=== PATIENT | female | born 1940 | race Caucasian/White ===

== ENCOUNTER 2019-09-14 04:55 | Inpatient (IN) ==
--- NOTE | 2019-05-26 07:35 | PAT Medication Instructions ---
Medication Instructions Date of Service May 26, 2019 Home Medications Lactobacillus acidophilus [Probiotic] 1 cell PO DAILY anastrozole 1 mg PO 1300 apixaban [Eliquis] 5 mg PO BID calcium carbonate-vitamin D3 [Os-Luis 500 + D3] 1 tab PO BID cholecalciferol (vitamin D3) [Vitamin D3] 5,000 unit PO UD diltiazem HCl 240 mg PO QAM levothyroxine 100 mcg PO QAM magnesium hydroxide [Milk of Magnesia] 400 mg PO DAILY PRN magnesium oxide 400 mg PO DAILY melatonin 5 mg PO HS Centrum Silver Women] 1 tab PO DAILY ASK your prescriber and surgeon anastrozole 1 mg PO 1300 apixaban [Eliquis] 5 mg PO BID (in order for spinal anesthesia, Apixaban/Eliquis needs to be stopped 72 hours/3 days before surgery. Please check if okay with doctor that prescribes this to you) DO NOT take the morning of surgery Lactobacillus acidophilus [Probiotic] 1 cell PO DAILY calcium carbonate-vitamin D3 [Os-Luis 500 + D3] 1 tab PO BID cholecalciferol (vitamin D3) [Vitamin D3] 5,000 unit PO UD magnesium hydroxide [Milk of Magnesia] 400 mg PO DAILY PRN magnesium oxide 400 mg PO DAILY Centrum Silver Women] 1 tab PO DAILY Take morning of surgery With a small sip of water, OTHERWISE NOTHING TO EAT OR DRINK AFTER MIDNIGHT: diltiazem HCl 240 mg PO QAM levothyroxine 100 mcg PO QAM Take evening before surgery calcium carbonate-vitamin D3 [Os-Luis 500 + D3] 1 tab PO BID magnesium hydroxide [Milk of Magnesia] 400 mg PO DAILY PRN (if needed) melatonin 5 mg PO HS Other Notes If you have any questions please call us at [phone] or [phone] or [phone] or [phone]
--- NOTE | 2019-08-16 11:57 | Anesthesiology Consultation ---
Date of Service August 16, 2019 Assessment & Plan (1) Encounter for pre-operative examination: COVID Status: As of 08/15 assessment, patient denies travel to endemic area, known exposure/sick contacts, or symptoms of COVID19. Patient made aware to social distance, wear a mask in public and avoid travel for 14 days prior to surgery. Preoperative COVID19 testing to be completed prior to surgery. Chart Review Chart Review: Acceptable Risk for Surgery (pending surgeon ordered PCP and cardio clearances) and Patient seen in Pre Admission Testing Teaching & Discussion Instructed NPO after midnight before surgery, except medications with 15 cc of water. Medication instructions provided according to the PAT guidelines. History Surgery Operation Date: 09/14/19 07:00 Proposed Procedures p Right Total Knee Arthroplasty - Chivo Vigil MD Height/Weight Height: 5 ft 5 in Weight: 74.5 kg Allergies Allergy/AdvReac Type Severity Reaction Status Date / Time capsaicin Allergy Intermediate Dizziness Verified 08/15/19 10:19 diclofenac Allergy Intermediate Dizziness Verified 08/15/19 10:19 Penicillins Allergy Intermediate RASH ALL Verified 08/15/19 10:19 OVER, "VEINS TURNED BLACK" Sulfa (Sulfonamide Allergy Intermediate FACIAL Verified 08/15/19 10:19 Antibiotics) SWELLING, RASH hydrochlorothiazide AdvReac Intermediate SEVERE Verified 08/15/19 10:19 DEHYDRATION, PT WAS HOSPITALIZED Diclopak AdvReac Unknown didn't Verified 04/27/15 12:24 work, got goofy Medications Home Medications Medication Instructions Recorded Confirmed Last Taken Lactobacillus acidophilus 1 cell PO DAILY 05/20/19 08/15/19 Unknown [Probiotic] anastrozole 1 mg PO 1300 05/20/19 08/15/19 Unknown apixaban [Eliquis] 5 mg PO BID 05/20/19 08/15/19 Unknown calcium carbonate-vitamin D3 1 tab PO BID 05/20/19 08/15/19 Unknown [Os-Luis 500 + D3] cholecalciferol (vitamin D3) 5,000 unit PO UD 05/20/19 08/15/19 Unknown [Vitamin D3] diltiazem HCl 240 mg PO QAM 05/20/19 08/15/19 Unknown levothyroxine 100 mcg PO QAM 05/20/19 08/15/19 Unknown magnesium hydroxide [Milk of 400 mg PO DAILY PRN 05/20/19 08/15/19 Unknown Magnesia] magnesium oxide 400 mg PO DAILY 05/20/19 08/15/19 Unknown melatonin 5 mg PO HS 05/20/19 08/15/19 Unknown [id number] 1 tab PO DAILY 05/20/19 08/15/19 Unknown [Centrum Silver Women] Past Medical History Medical History Atrial fibrillation ON ELIQUIS (DR. TROY) Heart murmur "SLIGHT" Hx of diverticulitis of colon Hx of migraines HX: breast cancer RT Hyperlipidemia Hypertension Hypothyroidism Osteoarthritis Spinal stenosis Exercise / Class Metabolic Activity II 4-5 Yardwork/Stairs/Walk up hill (Denies CP or SOB with 1 FOS) Past Family History Family History Father Family hx of colon cancer Brother Family hx of colon cancer Past Surgical History Surgical History Fusion of spine LUMBAR History of ankle surgery RT/LEFT History of appendectomy History of arthroscopy RT/LEFT KNEE History of biopsy ABDOMINAL BIOPSY History of breast biopsy History of cataract surgery RT/LEFT History of cholecystectomy History of colon resection History of colonoscopy History of dilatation and curettage X 2 History of hysterectomy History of shoulder surgery RT History of total knee replacement LEFT History of vascular access device POWER PORT IN PLACE (LEFT CHEST) Hx of lumpectomy RT Past Anesthesia History No Hx of Anesthesia Complications and No Family Hx of Anesthesia Complications History of PONV No Hx of Motion Sickness and History of PONV Social History Smoking Status: Never smoker Do You Dip or Chew Tobacco: No Hx Alcohol Use: Yes Alcohol type: wine alcohol intake frequency: a few times a month Hx Substance Use: No Review of Systems Pt denies any recent chest pain, shortness of breath, palpitations, cough, fever or URI. Physical Exam Vital Signs BP: 119/73 P: 65bpm SPO2: 95% RA T: 98.2 F R: 12 ENMT Mouth: no dentures, no dental restorations, no chipped teeth and no loose teeth Thyromental Distance: > or= 3.5 Finger Breadths (3.5) Mallampati Class: I Neck normal visual inspection; neck extension not limited Respiratory normal respiratory effort Auscultation: lungs clear to auscultation bilaterally Cardiovascular Rate/Rhythm: regular rate and regular rhythm Heart Sounds: + murmur (II/ LEV) Extremities: no edema Testing Laboratory Results 08/16/19 13:13 08/16/19 13:13 PT 10.8 Seconds (9.0-12.0) 08/16/19 13:13 INR 1.0 (0.9-1.1) 08/16/19 13:13 APTT 30.6 Seconds (21.0-31.0) 08/16/19 13:13 Hemoglobin A1c 5.9 % (4.5-5.6) H 08/16/19 13:13 Urine Color Yellow 08/16/19 13:13 Urine Appearance Clear (Clear) 08/16/19 13:13 Urine pH 6.5 (4.5-7.5) 08/16/19 13:13 Ur Specific [place] 1.019 (1.000-1.030) 08/16/19 13:13 Urine Protein Negative (Negative) 08/16/19 13:13 Urine Glucose (UA) Negative (Negative) 08/16/19 13:13 Urine Ketones Negative (Negative) 08/16/19 13:13 Urine Nitrite Negative (Negative) 08/16/19 13:13 Ur Leukocyte Esterase Trace (Negative) H 08/16/19 13:13 Urine WBC (Auto) 1-5 /hpf (0-5) 08/16/19 13:13 Urine RBC (Auto) 0-4 /hpf (0-4) 08/16/19 13:13 U Hyaline Cast (Auto) 0 /lpf (0-5) 08/16/19 13:13 U Epithel Cells (Auto) 5-10 /lpf (0-5) H 08/16/19 13:13 Urine Bacteria (Auto) Negative (Negative) 08/16/19 13:13 Blood Type O Negative 08/16/19 13:13 Antibody Screen NEGATIVE 08/16/19 13:13 Electrocardiogram Date: 07/19/19 Findings: + NSR @ (71bpm) PRWP, no change from previous .9 Chest X-Ray Date: 08/16/19 Findings: + NAD
--- NOTE | 2019-08-16 13:10 | XRay Report ---
XR chest 2V PA/lateral CLINICAL HISTORY: Preoperative chest COMPARISON STUDY: 03/21/2015 FINDINGS: The cardiac and mediastinal contours remain stable. Surgical clips project over the right b reast shadow. There is a left-sided A-Port catheter present. There is no failure. There is no focal p ulmonary consolidation. There are no pleural effusions.[ IMPRESSION: No active disease in the chest. ACT 112: Negative or not required by law. Electronically signed by: Byron Romero M.D. 08/16/2019 1:08 PM
[2019-08-16 13:38] LABS: Basophils # (auto) 0.04 K/uL (0-0.2); Basophils % (auto) 0.6 %; Hemoglobin 13.5 g/dL (12.0-16.0); Immature Granulocytes # (auto) 0.02 K/uL (0.00-0.02); Immature Granulocytes % (auto) 0.3 %; Lymphocytes % (auto) 28.1 %; Mean Corpuscular Hemoglobin 30.1 pg (25-34); Mean Corpuscular Hgb Conc 33.8 g/dL (32-36); Mean Corpuscular Volume 89.1 fL (80-100); Mean Platelet Volume 10.1 fL (7.4-10.4); Monocytes # (auto) 0.62 K/uL (0.11-0.59); Monocytes % (auto) 9.2 %; Neutrophils # (auto) 3.97 K/uL (1.4-6.5); Neutrophils % (auto) 58.8 %; Platelet Count 220 K/uL (130-400); RDW Coefficient of Variation 13.4 % (11.5-14.5); RDW Standard Deviation 43.8 fL (36.4-46.3); Red Blood Count 4.49 M/uL (4.2-5.4); White Blood Count 6.75 K/uL (4.8-10.8)
[2019-08-16 13:48] LABS: Appearance Urine Clear (Clear); Bacteria Urine Automated Negative (Negative); Bilirubin Urine Negative (Negative); Blood Urine Negative (Negative); Cast Urine Automated 0 /lpf (0-5); Color Urine Yellow; Glucose Urine UA Negative (Negative); Ketones Urine Negative (Negative); Leukocyte Esterase Urine Trace (Negative); Nitrite Urine Negative (Negative); Protein Urine Negative (Negative); RBC Urine Automated 0-4 /hpf (0-4); Specific Gravity Urine 1.019 (1.000-1.030); Urobilinogen Urine Negative (Negative); pH Urine 6.5 (4.5-7.5)
[2019-08-16 14:02] LABS: Partial Thromboplastin Ratio 1.1; Partial Thromboplastin Time 30.6 Seconds (21.0-31.0); Prothrombin Time 10.8 Seconds (9.0-12.0)
[2019-08-16 14:12] LABS: Estimated Average Glucose 123 mg/dl; Hemoglobin A1C 5.9 % (4.5-5.6)
[2019-08-16 14:20] LABS: Albumin Level 3.8 gm/dl (3.4-5.0); Calcium 8.9 mg/dl (8.5-10.1); Creatinine Clr Calc Pharmacy 49.9 ml/min; Est GFR (African American) 65.8; Est GFR (Non-African American) 56.7; Potassium 3.9 mmol/L (3.5-5.1)
--- NOTE | 2019-09-13 17:35 | History and Physical Report ---
DATE OF ADMISSION: 09/14/2019 CHIEF COMPLAINT: Chronic right knee pain. HISTORY OF PRESENT ILLNESS: This is a 78-year-old female patient of Dr. Vigil'rebeca complaining of chronic right knee pain, longstanding, now progressively getting worse. The patient has failed conservative treatment including intraarticular injections, viscosupplementation, a home exercise wellness program and the use of a sleeve. The patient has increased pain with weightbearing activities and her pain does interfere with her activities of daily living. The patient has been diagnosed with end-stage osteoarthritis per clinical and radiographic exams and wishes to proceed with a right total knee arthroplasty. PAST MEDICAL HISTORY: Hypertension, hypercholesterolemia, atrial fibrillation, hypothyroidism, osteoarthritis, sciatica, breast cancer. SOCIAL HISTORY: Nonsmoker, occasional drinker. FAMILY HISTORY: Noncontributory. REVIEW OF SYSTEMS: Chronic right knee pain, otherwise denies any shortness of breath, chest pain, nausea, vomiting or any other joint complaints. MEDICATIONS: 1. Synthroid 100 mcg daily. 2. Centrum Silver 1 daily. 3. Milk of magnesia 30 mL with 8 ounces of liquid daily. 4. Magnesium oxide 40 mg daily. 5. Melatonin 5 mg daily. 6. Tiazac 240 mg daily. 7. Arimidex 1 mg daily. 8. Eliquis 5 mg twice daily. 9. Vitamin D3 125 mcg daily. 10. Probiotic 10 mg capsule once daily. 11. Elidel 1% topical cream apply to affected area daily as needed. 12. Os-Luis 500 plus vitamin D3 500 mg twice daily. ALLERGIES: DICLOFENAC SODIUM AND HYDROCHLOROTHIAZIDE, PENICILLIN AND SULFA, PENICILLIN CAUSES ANAPHYLAXIS. PAST SURGICAL HISTORY: Appendectomy, D and C, hysterectomy, cholecystectomy, left knee arthroscopy, right knee arthroscopy, back surgery, right ankle and Achilles surgery, left total knee replacement, left ankle surgery, right shoulder surgery, abdominal biopsy, breast biopsy, breast lumpectomy, bowel resection. PHYSICAL EXAMINATION: GENERAL: Well-developed, well-nourished 78-year-old female in no acute distress. She is alert and oriented x3 and pleasant. HEENT: Normocephalic, atraumatic. Extraocular motions are intact. Pupils are equal and reactive to light. HEART: Regular rate and rhythm, no murmurs. LUNGS: Clear. ABDOMEN: Soft, nontender, bowel sounds present. EXTREMITIES: Right knee varus deformity. Range of motion 0-95. Medial joint line tenderness, 5/5 strength. NEUROLOGICALLY AND NEUROVASCULARLY: Intact in her right lower extremity. DIAGNOSES: Right knee end-stage osteoarthritis, hypertension, hypercholesterolemia, atrial fibrillation, hypothyroidism, osteoarthritis, sciatica, breast cancer. PLAN: The patient was advised of her diagnosis. Indications, risks, benefits, postop course have all been reviewed. The patient wished to proceed with a right total knee arthroplasty. Necessary consent forms, preoperative testing and clearances will be obtained.
[~2019-09-14 04:55] MED LIST: LR 500ML BOLUS, THEN 15ML/HR IV SCH
[2019-09-14] MEDS ORDERED: LR 500ML BOLUS, THEN 15ML/HR IV SCH (06:00)
[2019-09-14] MEDS ORDERED: VANCOMYCIN HCL 1,000 MG/270 ML BAG IV SCH (06:00)
[2019-09-14] MEDS ORDERED: METOCLOPRAMIDE HCL 10 MG TABLET PO SCH (06:00)
[2019-09-14] MEDS ORDERED: dexAMETHasone 4 MG TAB PO SCH (06:00)
[2019-09-14] MEDS ORDERED: ROPIVACAINE 0.5% HCL/PF 150 MG, BUPIVACAINE 0.5% MPF 30 ML, EPINEPHrine 30MG/30ML (OR U... INFIL SCH (06:00)
[2019-09-14] MEDS ORDERED: GABAPENTIN 300 MG CAP PO SCH (06:00)
[2019-09-14] MEDS ORDERED: FAMOTIDINE 20 MG TAB PO SCH (06:00)
[2019-09-14] MEDS ORDERED: ACETAMINOPHEN 500 MG TAB PO SCH (06:00)
[2019-09-14] MEDS ORDERED: BUPIVACAINE/EPINEPHRINE 0.25% 1:200,000 30 ML VIAL ONE (06:28)
[2019-09-14] MEDS ORDERED: BUPIVACAINE 0.5 % 5 MG/1 ML PF 10ML VIAL ONE (06:28)
[2019-09-14] MEDS ORDERED: MIDAZOLAM HCL 1 MG/ML 2ML VIAL ONE (06:36)
[2019-09-14] MEDS ORDERED: BACITRACIN INJ 50,000 UNIT VIAL ONE (06:44)
[2019-09-14] MEDS ORDERED: ORTHO JOINT ANESTHETIC ONE (06:44)
--- NOTE | 2019-09-14 06:45 | History & Physical Bridge Note ---
Date of Service September 14, 2019 History & Physical Bridge Note I have examined the patient, reviewed the History & Physical and in the interval since the performance of the History & Physical I have noted the following changes of clinical significance: no changes noted
[2019-09-14] MEDS ORDERED: HYDROmorphone INJ 2 MG/ML SYR/VIAL IV PRN (07:11)
[2019-09-14] MEDS ORDERED: fentaNYL citrate 100 MCG/2 ML VIAL IV PRN (07:11)
[2019-09-14] MEDS ORDERED: ONDANSETRON INJ 2 MG/ML 2 ML VIAL IV PRN ×2 (07:11→09:53)
[2019-09-14] MEDS ORDERED: ePHEDrine sulfate 50 MG/ML AMP IV PRN (07:11)
[2019-09-14] MEDS ORDERED: ATROPINE SULFATE 0.1 MG/ML 10ML SYR IV PRN (07:11)
--- NOTE | 2019-09-14 08:43 | Post Operative Brief Note ---
Immediate Post Op Note v1 Date of Surgery September 14, 2019 Pre & Post Diagnosis Operation Date: 09/14/19 07:00 Pre-Op Diagnosis: Right Knee Osteoarthritis Post-Op Diagnosis: Right Knee Osteoarthritis I identified the patient and participated in the time-out.: Yes Procedure Operation Date: 09/14/19 07:00 Actual Procedures p Right Total Knee Arthroplasty(Right) - Chivo Vigil MD Surgeon Chivo Vigil MD Electrical Tests Supervisor CINTHIA Link Estimated Blood Loss 2 Findings Consistent with Post-Op Diagnosis Specimens Bone cuts Drains Hemovac Drain (10french, dual lumen) Anesthesia Type MAC Spinal Regional Complications none Disposition Accompanied Patient To Recovery: No Disposition: Recovery Room Overlapping Procedure I was immediately available: during the entire case.
--- NOTE | 2019-09-14 08:57 | Operative Report ---
Post Operative Report Pre & Post Diagnosis Operation Date: 09/14/19 07:00 Pre-Op Diagnosis: Right Knee Osteoarthritis Post-Op Diagnosis: Right Knee Osteoarthritis I identified the patient and participated in the time-out.: Yes Procedure Operation Date: 09/14/19 07:00 Actual Procedures p Right Total Knee Arthroplasty(Right) - Chivo Vigil MD Surgeon Chivo Vigil MD Director Of Acquisitions CINTHIA Link Estimated Blood Loss 2 Findings Consistent with Post-Op Diagnosis Specimens Bone cuts Drains 2 Hemovac Anesthesia Type MAC Spinal Regional Complications none Disposition Accompanied Patient To Recovery: No Disposition: Recovery Room Indications 78-year-old female chronic right knee pain due to osteoarthritis with progressive condition [id number] medial compartment patellofemoral joint with varus knee. Successful left knee replacement in the past. Description of Procedure The patient was taken to the operating room and anesthetized under spinal MAC regional. Patient was placed supine on the the operating table. A pneumatic tourniquet was placed about the right upper thigh. The knee exam demonstrated 10 through 135 degrees range of motion no instability varus knee. The involved leg was elevated exsanguinated with Esmarch bandage and the pneumatic tourniquet was raised to 275 millimeters mercury. A longitudinal incision was made across the anterior knee. Skin flaps were elevated. An incision was made into the medial retinaculum and extended up into the mid third of the quadriceps tendon and extended down to the tibial tubercle. Intra-articular findings demonstrated medial compartment and patellofemoral osteoarthritis grade 4 patellofemoral disease grade 4 medial compartment disease varus knee, loose bodies. The knee was exposed by excising cruciate ligaments and menisci. The infrapatellar fat pad was resected. The fat pad over the anterior femur at the upper aspect of th e articular surface was resected for placement of the component in that area. A subperiosteal peel lateral release was performed around the patella. Loose bodies removed. Medial and posterior medial release was performed to balance the ligaments. The [employer] journey 2.0 posterior stabilized total knee arthroplasty system was utilized for the procedure. The custom femoral cutting guide was pinned in position. The distal femoral cut was made. The size 4, 5 in 1 cutting block was placed. The anterior posterior and chamfer cuts were made. The knee was extended and a free hand cut technique was performed to the patella. The patella with was measured and the width was reproduced using a 35 symmetrical patella component. 3 drill holes are made for the patella component pegs. The tibia was then subluxed. The custom tibial cutting block was pinned in position and the proximal tibial cut was made with the oscillating saw. The size 4 tibial trial was externally rotated in line with the tibial tubercle and pinned in position. The punch for the stem was used. The femoral trial was inserted and centered the notch cutting devices were used and the collet was placed. Tibial trials were used for the insert. The size 10 trial gave balanced ligaments through full range of motion. Patella tracking was assessed with range of motion. The patella tracked centrally. The trials were removed. The Orthomix anesthetic cocktail was injected per protocol. The cut bone surfaces and soft tissue were copiously irrigated with antibiotic solution with bacitracin. The final components were cemented with Simplex cement. The final components were [employer] journey 2.0 right 4 posterior stabilized femoral component, tibia size 4 primary baseplate, 10 posterior stabilized polyethylene tibial insert, 35 symmetrical polyethylene patella. While the cement cured the Betadine soak was used per protocol. When the cement cured the knee was copiously irrigated with pulsatile lavage antibiotic solution with bacitracin. 2 drains were brought out laterally connected to Hemovac. The quadriceps tendon and medial retinaculum were closed with interrupted [id number] #1 Vicryl sutures. The knee was taken through full range of motion and repair was secure. The subcutaneous tissues were closed with 2-0 Vicryl sutures. The skin was closed with christine. A sterile dressing was applied. The tourniquet was let down and the patient had good capillary refill to the extremity. The patient tolerated the procedure well. My physician malt specifications control assistant CINTHIA Link assisted in the procedure including prepping draping leg positioning soft tissue retraction instrument management and assisted in the closure ,dressings application and will participate in postoperative care the patient. I attest to the content of the Intraoperative Record and any orders documented therein. Any exceptions are noted below.
--- NOTE | 2019-09-14 09:19 | XRay Report ---
TWO VIEWS RIGHT KNEE CLINICAL HISTORY: Postoperative examination. FINDINGS: AP and crosstable lateral portable views of the right knee are obtained. A right knee arthr oplasty is in near anatomic alignment. There has been undersurface remodeling of the patella. No acut e fracture is seen. There are expected postoperative changes around the knee including skin clips, a surgical drain, soft tissue edema, and subcutaneous gas. IMPRESSION: Expected postoperative changes status post right knee arthroplasty. No acute fracture is seen. ACT 112: Negative or not required by law. Electronically signed by: Chance Zhang M.D. 09/14/2019 9:18 AM
[2019-09-14] MEDS ORDERED: NON-FORMULARY MEDICATION (Multivit-Min-Iron-Fa-Lutein [Centrum Silver Women] 1 TAB) PO SCH (09:53)
[2019-09-14] MEDS ORDERED: NON-FORMULARY MEDICATION (Lactobacillus Acidophilus [Probiotic] 1 cell) PO SCH (09:53)
[2019-09-14] MEDS ORDERED: VANCOMYCIN CONSULT ACTIVE PRN (09:53)
[2019-09-14] MEDS ORDERED: MAGNESIUM HYDROXIDE SUSP 30 ML UDC PO PRN ×2 (09:53)
[2019-09-14] MEDS ORDERED: bisacodyL 10 MG SUPP PR PRN (09:53)
[2019-09-14] MEDS ORDERED: HYDROmorphone INJ 0.5 MG/0.5 ML SYR IV PRN (09:53)
[2019-09-14] MEDS ORDERED: NALOXONE HCL 0.4 MG/1 ML VIAL/CARP IV PRN (09:53)
--- NOTE | 2019-09-14 10:09 | Anesthesiology Progress Note ---
Date of Service September 14, 2019 Anesthesia Post Procedure Vital Signs Vital Signs: Temp Pulse Pulse Resp BP BP Pulse Ox 09/14/19 09:40 36.4 C L 65 16 111/56 L 96 09/14/19 09:30 55 L 15 110/48 L 92 09/14/19 09:15 36.4 C L 59 L 16 104/49 L 92 09/14/19 09:05 67 18 106/61 95 09/14/19 08:55 59 L 14 107/45 L 100 09/14/19 08:48 36.4 C L 62 16 94/48 L 100 09/14/19 05:28 36.8 C 69 18 146/74 H 99 Transfer of Care Handoff Completed per policy Notes Mental Status: alert / awake / arousable and participated in evaluation Patient Amnestic to Procedure: Yes Nausea / Vomiting: adequately controlled Pain: adequately controlled Airway Patency, RR, SpO2: stable & adequate BP & HR: stable & adequate Hydration State: stable & adequate Anesthetic Complications: no major complications apparent and Pt Satisfied with anesthetic care
--- NOTE | 2019-09-14 10:31 | Hospitalist Consultation ---
Date of Consultation September 14, 2019 Assessment & Plan (1) Status post total knee replacement, right: 09/14/2019 Dr Vigil Pain/PT management as per orthopedics DVT prophylaxis with Eliquis (primarily on this for paroxysmal A. fib) - restart as per orthopedics (2) Hypertension: Low pressure currently acceptable, continue her usual dose of diltiazem as well as systolic blood pressure > 110. (3) Hypothyroidism: No TSH in EHR. No need to repeat given no concern current patient symptoms. Continue levothyroxine 100 mcg PO daily (4) Atrial fibrillation: Paroxysmal atrial fibrillation -previous hospitalizations for rapid ventricular rate but none recent Currently in normal sinus rhythm on EKG and regular rhythm on auscultation Anticoagulation with Eliquis - restart as per orthopedic recommendation (will start tomorrow as per order) (5) History of breast cancer: Continue anastrazole 1mg PO daily History of Present Illness Reason for Consultation: Routine post op medical management Attending Physician: Chivo Vigil MD History of Present Illness Sarahy Mina is a 78 year old female here for elective right total knee arthroplasty performed earlier today (09/14/2019) by Dr Vigil for osteoarthritis. Medicine consulted for routine post op medical management. The patient is alert and orientated postoperatively. No current concerns or questions. History of hypertension, hypercholesterolemia, hypothyroidism, breast cancer, paroxysmal atrial fibrillation and sciatica. Pre-op lab work reviewed and relatively unremarkable although HbA1C 5.7 suggests patient at risk of diabetes however fating glucose <100. No pre-op EKG seen in EHR or on [place]. Pre-op CXR with no acudive disease in chest. Left sided a-Port present. Allergies Allergy/AdvReac Type Severity Reaction Status Date / Time capsaicin Allergy Intermediate Dizziness Verified 09/14/19 05:26 Penicillins Allergy Intermediate RASH ALL Verified 09/14/19 05:26 OVER, "VEINS TURNED BLACK" Sulfa (Sulfonamide Allergy Intermediate FACIAL Verified 09/14/19 05:26 Antibiotics) SWELLING, RASH diclofenac AdvReac Intermediate Dizziness Verified 09/14/19 05:26 hydrochlorothiazide AdvReac Intermediate SEVERE Verified 09/14/19 05:26 DEHYDRATION, PT WAS HOSPITALIZED Diclopak AdvReac Unknown didn't Verified 04/27/15 12:24 work, got goofy Home Medications Home Medications Medication Instructions Recorded Confirmed Type Lactobacillus acidophilus 1 cell PO DAILY 05/20/19 09/14/19 History [Probiotic] anastrozole 1 mg PO 1300 05/20/19 09/14/19 History apixaban [Eliquis] 5 mg PO BID 05/20/19 09/14/19 History calcium carbonate-vitamin D3 1 tab PO BID 05/20/19 09/14/19 History [Os-Luis 500 + D3] cholecalciferol (vitamin D3) 5,000 unit PO UD 05/20/19 09/14/19 History [Vitamin D3] diltiazem HCl 240 mg PO QAM 05/20/19 09/14/19 History levothyroxine 100 mcg PO QAM 05/20/19 09/14/19 History magnesium hydroxide [Milk of 400 mg PO DAILY PRN 05/20/19 09/14/19 History Magnesia] magnesium oxide 400 mg PO DAILY 05/20/19 09/14/19 History melatonin 5 mg PO HS 05/20/19 09/14/19 History mnyxythe-ajo-mcwn-FA-lutein 1 tab PO DAILY 05/20/19 09/14/19 History [Centrum Silver Women] Restasis See Rx Instructions .ROUTE .COMPLEX 09/14/19 09/14/19 History Patient History Medical History Atrial fibrillation ON ELIQUIS (DR. TROY) Heart murmur "SLIGHT" Hx of diverticulitis of colon Hx of migraines HX: breast cancer RT Hyperlipidemia Hypertension Hypothyroidism Osteoarthritis Spinal stenosis Surgical History Fusion of spine LUMBAR History of ankle surgery RT/LEFT History of appendectomy History of arthroscopy RT/LEFT KNEE History of biopsy ABDOMINAL BIOPSY History of breast biopsy History of cataract surgery RT/LEFT History of cholecystectomy History of colon resection History of colonoscopy History of dilatation and curettage X 2 History of hysterectomy History of shoulder surgery RT History of total knee replacement LEFT History of vascular access device POWER PORT IN PLACE (LEFT CHEST) Hx of lumpectomy RT Family History Father Family hx of colon cancer Brother Family hx of colon cancer Social History Smoking Status: Never smoker Second Hand Exposure: Yes ( A CHILD); Do You Dip or Chew Tobacco: No; Tobacco Cessation Education Requested by Patient: No Hx Alcohol Use: Yes Alcohol type: wine Hx Substance Use: No Preferred Language: [place] Leonean Coating Operator Required: No Beliefs That Will Affect Care: None Current Living Situation: Spouse Feels Safe at Home: Yes Safety Concerns: Feels Safe At This Time Review of Systems Review of Systems: All systems reviewed & are unremarkable except as noted in HPI & below Physical Exam Constitutional: well developed and well nourished; no acute distress Eyes: + anicteric sclerae; normal pupil size ENMT: external ear and nose normal, oropharynx normal Neck: trachea midline, no thyromegaly Respiratory: normal respiratory effort, lungs clear to auscultation Cardiovascular: RRR, no murmur, no edema Gastrointestinal (Abdomen): normal bowel sounds, soft, nontender, no hepatosplenomegaly Neurologic: awake; not confused Psychiatric: A+Ox3, euthymic affect Results & Data Results & Data ([facility]) Vital Signs (Past 12 Hours) Vital Signs Temp Pulse Pulse Resp BP BP Pulse Ox 09/14/19 10:14 36.4 C L 61 18 110/66 95 09/14/19 09:40 36.4 C L 65 16 111/56 L 96 09/14/19 09:30 55 L 15 110/48 L 92 09/14/19 09:15 36.4 C L 59 L 16 104/49 L 92 09/14/19 09:05 67 18 106/61 95 09/14/19 08:55 59 L 14 107/45 L 100 09/14/19 08:48 36.4 C L 62 16 94/48 L 100 09/14/19 05:28 36.8 C 69 18 146/74 H 99 ECG Rhythm: normal sinus Findings: + other (Poor R wave progression) and + 1st degree AV block Comparison ECG Date: from (September 26, 2010) Change: the following changes noted (Age-indeterminate possible anterior lateral infarct and poor R wave progression are new from 2008) PG Care Time/CCT Total # of Minutes Spent Total Time Spent with Patient: Total time spent is greater than 50% in coordination of care (as documented) at patient's floor/unit and/or counseling patient: Coding Level of Care Code 19811 Inpt Consult Level 3 Diagnoses Status post total knee replacement, right Z96.651 Hypertension I10 Hypothyroidism E03.9 Atrial fibrillation I48.0 Atrial fibrillation type: paroxysmal History of breast cancer Z85.3 (1) Atrial fibrillation Atrial fibrillation type: paroxysmal Qualified Code(s): I48.0 - Paroxysmal atrial fibrillation
[2019-09-14] MEDS: DOCUSATE SODIUM 100 MG CAP PO SCH ×2 (10:50→21:28)
[2019-09-14] MEDS: dilTIAZem HCL 240 MG CAPCR PO SCH ×2 (10:51→11:31)
[2019-09-14] MEDS: LEVOTHYROXINE SODIUM 100 MCG TABLET PO SCH ×2 (10:51→11:30)
[2019-09-14] MEDS: MULTIVITAMIN TAB PO SCH (10:51)
[2019-09-14] MEDS: RESTASIS~ORDER AWAITING ACTION SCH ×2 (10:51→15:49)
--- NOTE | 2019-09-14 12:47 | Electrocardiogram Report ---
Test Reason : Blood Pressure : / mmHG Vent. Rate : 063 BPM Atrial Rate : 063 BPM P-R Int : 248 ms QRS Dur : 098 ms QT Int : 444 ms P-R-T Axes : 033 -31 -07 degrees QTc Int : 454 ms Sinus rhythm with 1st degree A-V block Left axis deviation Minimal voltage criteria for LVH, may be normal variant ( R in aVL ) Possible Anterolateral infarct , age undetermined Abnormal ECG When compared with ECG of 26-SEP-2010 15:41, Significant changes have occurred Confirmed by Celestine Jonas ([id number]) on 09/14/2019 12:47:36 PM Referred By: Chivo Vigil Confirmed By:Celestine Jonas
[2019-09-14] MEDS: ANASTROZOLE 1 MG TAB PO SCH (12:57)
[2019-09-14] MEDS: ACETAMINOPHEN 500 MG TAB PO SCH ×2 (13:51→21:28)
[2019-09-14] MEDS: SODIUM CHLORIDE 0.9% 1000ML 1,000 ML IV SCH (15:46)
[2019-09-14] MEDS ORDERED: VANCOMYCIN HCL 1,000 MG in SODIUM CHLORIDE 0.9% 250 ML IV SCH (18:00)
[2019-09-14] MEDS: CALCIUM 600MG + VIT D 400 IU TAB PO SCH (21:28)
[2019-09-14] MEDS: SENNA 8.6 MG TAB PO SCH (21:29)
[2019-09-14] MEDS: MELATONIN 3 MG TAB PO SCH (23:30)
[2019-09-15] MEDS: RESTASIS~ORDER AWAITING ACTION SCH ×3 (00:55→16:00)
[2019-09-15] MEDS: HEPARIN 100 UNIT/ML 5ML FLUSH FLUSH PRN (02:27)
[2019-09-15] MEDS: SODIUM CHLORIDE 0.9% 1000ML 1,000 ML IV SCH (03:14)
[2019-09-15] MEDS: OXYCODONE HCL IR 5 MG TAB (IMMEDIATE RELEASE) PO PRN ×3 (04:14→15:13)
[2019-09-15] MEDS: ACETAMINOPHEN 500 MG TAB PO SCH ×3 (06:04→21:09)
[2019-09-15] MEDS: LEVOTHYROXINE SODIUM 100 MCG TABLET PO SCH (06:04)
[2019-09-15 06:34] LABS: Hematocrit (blood only) 29.1 % (37-47); Hemoglobin 9.8 g/dL (12.0-16.0); Mean Corpuscular Hemoglobin 30.1 pg (25-34); Mean Corpuscular Hgb Conc 33.7 g/dL (32-36); Mean Corpuscular Volume 89.3 fL (80-100); Mean Platelet Volume 9.9 fL (7.4-10.4); Platelet Count 198 K/uL (130-400); RDW Coefficient of Variation 13.7 % (11.5-14.5); RDW Standard Deviation 44.8 fL (36.4-46.3); Red Blood Count 3.26 M/uL (4.2-5.4); White Blood Count 12.85 K/uL (4.8-10.8)
[2019-09-15 07:11] LABS: BUN Creatinine Ratio 26.8 (10-20); Calcium 8.4 mg/dl (8.5-10.1); Creatinine Clr Calc Pharmacy 65.8 ml/min; Est GFR (African American) 92.7; Potassium 4.1 mmol/L (3.5-5.1)
[2019-09-15] MEDS: MAGNESIUM OXIDE 400 MG TAB PO SCH (08:46)
[2019-09-15] MEDS: CALCIUM 600MG + VIT D 400 IU TAB PO SCH ×2 (08:46→20:11)
[2019-09-15] MEDS: DOCUSATE SODIUM 100 MG CAP PO SCH ×2 (08:47→20:12)
[2019-09-15] MEDS: dilTIAZem HCL 240 MG CAPCR PO SCH (08:47)
[2019-09-15] MEDS: APIXABAN 5 MG TABLET PO SCH ×2 (08:47→20:11)
[2019-09-15] MEDS: MULTIVITAMIN TAB PO SCH (08:47)
[2019-09-15] MEDS: CHOLECALCIFEROL 1,000 UNITS 25 MCG TAB PO SCH (08:48)
--- NOTE | 2019-09-15 11:13 | Orthopedic Progress Note ---
Date of Service September 15, 2019 Assessment & Plan (1) Status post total knee replacement, right: POD #1, Right TKA PT/ OT DVT proph- [facility] D/C planning- Home w OPPT As per medicine- recent EKG changes. Admission and Anticipated Discharge Date Admission Date: September 14, 2019 Subjective POD #1, Right TKA Doing well Denies SOB, CP, N/V, dizziness. Pain controlled well. Wishes OPPT on D/C Physical Exam Physical Exam: Right knee dressings c/d/i, no drainage. Toes/ ankle mobile. No calf tenderness. A&Ox3. Results & Data ([facility]) Vital Signs (Past 12 Hours) Vital Signs Temp Pulse Resp BP Pulse Ox 09/15/19 08:50 81 108/61 09/15/19 07:42 37.1 C 67 16 106/66 95 09/15/19 02:44 36.9 C 73 16 115/68 92 09/14/19 23:16 37.4 C 73 16 126/72 93
[2019-09-15] MEDS: ANASTROZOLE 1 MG TAB PO SCH (12:32)
--- NOTE | 2019-09-15 13:49 | Hospitalist Progress Note ---
Date of Service September 15, 2019 Assessment & Plan (1) Status post total knee replacement, right: 09/14/2019 Dr Vigil Pain/PT management as per orthopedics DVT prophylaxis with Eliquis (primarily on this for paroxysmal A. fib) resumed per primary (2) Hypertension: Low normal pressures - continue her usual dose of diltiazem as well as systolic blood pressure > 110. (3) Hypothyroidism: Continue levothyroxine 100 mcg PO daily (4) Atrial fibrillation: Paroxysmal atrial fibrillation -previous hospitalizations for rapid ventricular rate but none recent Currently with a regular rhythm to auscultation Anticoagulation with Eliquis - resumed per primary (5) History of breast cancer: Continue anastrazole 1mg PO daily (6) Acute blood loss anemia: Hgb dropped from 13.5 to 9.8 post op Continue to monitor Thank you for involving us in the care of this patient, medicine will sign off at this time. Admission and Anticipated Discharge Date Admission Date: September 14, 2019 Subjective Ms. Mina feels good today. She has no complaints Physical Exam Physical Exam: General: no distress Eyes: normal inspection, PERLL Respiratory: chest non tender, clear to auscultation, normal breath sounds, no respiratory distress, no accessory muscle use Cardiac: regular rate and rhythm, no rub or gallop, 2/6 RUSB systolic murmur, no edema, no jvd GI/: active bowel sounds, no abd pain or tenderness, soft, non distended Extremities: normal range of motion, normal strength, non tender Neuro/Psych: alert and oriented x 3, normal mood and affect Skin: normal color, dry Results & Data Results & Data ([facility]) Vital Signs (Past 12 Hours) Vital Signs Temp Pulse Resp BP Pulse Ox 09/15/19 11:28 36.7 C 65 16 105/62 96 09/15/19 08:50 81 108/61 09/15/19 07:42 37.1 C 67 16 106/66 95 09/15/19 02:44 36.9 C 73 16 115/68 92 PG Care Time/CCT Total # of Minutes Spent Total Time Spent with Patient: Total time spent is greater than 50% in coordination of care (as documented) at patient's floor/unit and/or counseling patient: Coding Level of Care Code 44409 Subseq Hosp Care Lvl 2 Diagnoses Status post total knee replacement, right Z96.651 Hypertension I10 Hypothyroidism E03.9 Atrial fibrillation I48.0 Atrial fibrillation type: paroxysmal History of breast cancer Z85.3 Acute blood loss anemia D62 (1) Atrial fibrillation Atrial fibrillation type: paroxysmal Qualified Code(s): I48.0 - Paroxysmal atrial fibrillation
[2019-09-15] MEDS: SENNA 8.6 MG TAB PO SCH (20:11)
[2019-09-15] MEDS: MELATONIN 3 MG TAB PO SCH (20:12)
[2019-09-16] MEDS: RESTASIS~ORDER AWAITING ACTION SCH ×4 (00:06→23:09)
[2019-09-16] MEDS: OXYCODONE HCL IR 5 MG TAB (IMMEDIATE RELEASE) PO PRN ×5 (03:16→23:09)
[2019-09-16] MEDS: ACETAMINOPHEN 500 MG TAB PO SCH ×3 (05:36→21:09)
[2019-09-16] MEDS: LEVOTHYROXINE SODIUM 100 MCG TABLET PO SCH (05:37)
[2019-09-16 06:23] LABS: Hematocrit (blood only) 25.2 % (37-47); Hemoglobin 8.5 g/dL (12.0-16.0); Mean Corpuscular Hemoglobin 30.4 pg (25-34); Mean Corpuscular Hgb Conc 33.7 g/dL (32-36); Platelet Count 168 K/uL (130-400); RDW Coefficient of Variation 13.9 % (11.5-14.5); RDW Standard Deviation 45.9 fL (36.4-46.3); White Blood Count 7.68 K/uL (4.8-10.8)
[2019-09-16 07:08] LABS: BUN Creatinine Ratio 28.1 (10-20); Calcium 8.3 mg/dl (8.5-10.1); Creatinine Clr Calc Pharmacy 60.8 ml/min; Est GFR (African American) 84.3; Est GFR (Non-African American) 72.7
--- NOTE | 2019-09-16 07:42 | Orthopedic Progress Note ---
Date of Service September 16, 2019 Assessment & Plan (1) Status post total knee replacement, right: POD #2, Right TKA PT/ OT DVT proph- [facility] D/C planning- Home w OPPT poss later if Hgb stabilizes and no more dizziness. As per medicine- recent EKG changes. Dizziness this Am with Hgb trending down, ? orthostatic - 9.8 to 8.5 this AM, will re check at 1500. Admission and Anticipated Discharge Date Admission Date: September 14, 2019 Subjective POD #2, Right TKA Doing well Denies SOB, CP, N/V. Had a dizzy episode this AM while in the bathroom, isolated incident. Hgb from 9.8 to 8.5 this AM Pain controlled well. Wishes OPPT on D/C Physical Exam Physical Exam: Right knee silverlon c/d/i, no drainage. Toes/ ankle mobile. A8Ox3. No calf tenderness. Results & Data ([facility]) Vital Signs (Past 12 Hours) Vital Signs Temp Pulse Resp BP Pulse Ox 09/16/19 07:12 36.7 C 64 16 122/75 97 09/16/19 06:23 36.8 C 62 16 108/67 95 09/15/19 23:17 37.1 C 79 14 105/58 L 93
[2019-09-16] MEDS: FERROUS SULFATE 325 MG TAB PO SCH (08:35)
[2019-09-16] MEDS: DOCUSATE SODIUM 100 MG CAP PO SCH ×2 (08:35→21:08)
[2019-09-16] MEDS: MULTIVITAMIN TAB PO SCH (08:36)
[2019-09-16] MEDS: MAGNESIUM OXIDE 400 MG TAB PO SCH (08:36)
[2019-09-16] MEDS: APIXABAN 5 MG TABLET PO SCH ×2 (08:36→21:08)
[2019-09-16] MEDS: CHOLECALCIFEROL 1,000 UNITS 25 MCG TAB PO SCH (08:37)
[2019-09-16] MEDS: CALCIUM 600MG + VIT D 400 IU TAB PO SCH ×2 (08:37→21:07)
[2019-09-16] MEDS: dilTIAZem HCL 240 MG CAPCR PO SCH (09:43)
[2019-09-16] MEDS: ANASTROZOLE 1 MG TAB PO SCH (12:45)
[2019-09-16] MEDS: HEPARIN 100 UNIT/ML 5ML FLUSH FLUSH PRN (15:09)
[2019-09-16 15:16] LABS: Hematocrit (blood only) 27.1 % (37-47); Mean Corpuscular Hemoglobin 30.1 pg (25-34); Mean Corpuscular Hgb Conc 33.2 g/dL (32-36); Mean Corpuscular Volume 90.6 fL (80-100); Mean Platelet Volume 9.8 fL (7.4-10.4); Platelet Count 181 K/uL (130-400); RDW Coefficient of Variation 14.1 % (11.5-14.5); RDW Standard Deviation 46.7 fL (36.4-46.3); Red Blood Count 2.99 M/uL (4.2-5.4); White Blood Count 7.97 K/uL (4.8-10.8)
[2019-09-16] MEDS ORDERED: FERROUS SULFATE 325 MG TAB PO SCH (17:00)
[2019-09-16] MEDS: MELATONIN 3 MG TAB PO SCH (21:08)
[2019-09-16] MEDS: SENNA 8.6 MG TAB PO SCH (21:09)
[2019-09-17] MEDS: OXYCODONE HCL IR 5 MG TAB (IMMEDIATE RELEASE) PO PRN ×5 (04:22→21:31)
[2019-09-17] MEDS: ACETAMINOPHEN 500 MG TAB PO SCH ×3 (05:58→21:33)
[2019-09-17] MEDS: LEVOTHYROXINE SODIUM 100 MCG TABLET PO SCH (05:58)
[2019-09-17] MEDS: HEPARIN 100 UNIT/ML 5ML FLUSH FLUSH PRN ×2 (06:50→13:36)
[2019-09-17 07:06] LABS: Basophils # (auto) 0.01 K/uL (0-0.2); Basophils % (auto) 0.1 %; Eosinophils # (auto) 0.13 K/uL (0-0.5); Eosinophils % (auto) 1.7 %; Hematocrit (blood only) 24.9 % (37-47); Hemoglobin 8.5 g/dL (12.0-16.0); Immature Granulocytes # (auto) 0.02 K/uL (0.00-0.02); Immature Granulocytes % (auto) 0.3 %; Lymphocytes # (auto) 1.47 K/uL (1.2-3.4); Lymphocytes % (auto) 19.6 %; Mean Corpuscular Hemoglobin 30.6 pg (25-34); Mean Corpuscular Hgb Conc 34.1 g/dL (32-36); Mean Corpuscular Volume 89.6 fL (80-100); Mean Platelet Volume 9.6 fL (7.4-10.4); Monocytes % (auto) 10.7 %; Neutrophils # (auto) 5.08 K/uL (1.4-6.5); Neutrophils % (auto) 67.6 %; Platelet Count 158 K/uL (130-400); RDW Coefficient of Variation 13.9 % (11.5-14.5); RDW Standard Deviation 45.8 fL (36.4-46.3); Red Blood Count 2.78 M/uL (4.2-5.4); White Blood Count 7.51 K/uL (4.8-10.8)
[2019-09-17] MEDS: dilTIAZem HCL 240 MG CAPCR PO SCH (07:26)
[2019-09-17] MEDS: CALCIUM 600MG + VIT D 400 IU TAB PO SCH ×2 (07:27→21:35)
[2019-09-17] MEDS: DOCUSATE SODIUM 100 MG CAP PO SCH ×2 (07:27→21:34)
[2019-09-17] MEDS: FERROUS SULFATE 325 MG TAB PO SCH (07:27)
[2019-09-17] MEDS: CHOLECALCIFEROL 1,000 UNITS 25 MCG TAB PO SCH (07:27)
[2019-09-17] MEDS: APIXABAN 5 MG TABLET PO SCH ×2 (07:27→21:35)
[2019-09-17] MEDS: MULTIVITAMIN TAB PO SCH (07:28)
[2019-09-17] MEDS: MAGNESIUM OXIDE 400 MG TAB PO SCH (07:28)
[2019-09-17] MEDS: RESTASIS~ORDER AWAITING ACTION SCH ×2 (07:28→16:38)
--- NOTE | 2019-09-17 08:01 | Orthopedic Progress Note ---
Date of Service September 17, 2019 Assessment & Plan (1) Status post total knee replacement, right: 78 yo female stable POD #3 s/p right TKA 1. Med management 2. DVT prophylaxis- Eliquis, SCDs 3. PT/OT 4. D/C planning- home w/ OPPT Admission and Anticipated Discharge Date Admission Date: September 14, 2019 Subjective Pt states pain last evening but better controlled this AM Physical Exam Physical Exam: Silverlon in place, toes mobile, NVI, calves soft, NT Results & Data ([facility]) Vital Signs (Past 12 Hours) Vital Signs Temp Pulse Resp BP Pulse Ox 09/17/19 07:08 37.7 C H 80 16 97/64 L 93 09/17/19 06:15 74 18 100/61 96 09/16/19 23:15 37.4 C 79 18 128/70 94 Laboratory Results 09/17/19 09/16/19 Range/Units 06:49 15:01 WBC 7.51 7.97 (4.8-10.8) K/uL RBC 2.78 L 2.99 L (4.2-5.4) M/uL Hgb 8.5 L 9.0 L (12.0-16.0) g/dL Hct 24.9 L 27.1 L (37-47) % MCV 89.6 90.6 (80-100) fL MCH 30.6 30.1 (25-34) pg MCHC 34.1 33.2 (32-36) g/dL RDW Std Deviation 45.8 46.7 H (36.4-46.3) fL RDW Coeff of Brijesh 13.9 14.1 (11.5-14.5) % Plt Count 158 181 (130-400) K/uL MPV 9.6 9.8 (7.4-10.4) fL Immature Gran % (Auto) 0.3 % Neut % (Auto) 67.6 % Lymph % (Auto) 19.6 % [place] % (Auto) 10.7 % Eos % (Auto) 1.7 % Baso % (Auto) 0.1 % Neut # (Auto) 5.08 (1.4-6.5) K/uL Lymph # (Auto) 1.47 (1.2-3.4) K/uL [place] # (Auto) 0.80 H (0.11-0.59) K/uL Eos # (Auto) 0.13 (0-0.5) K/uL Baso # (Auto) 0.01 (0-0.2) K/uL Immature Gran # (Auto) 0.02 (0.00-0.02) K/uL
[2019-09-17] MEDS ORDERED: SODIUM CHLORIDE 0.9% 1000ML 500 ML IV ONE (12:32)
[2019-09-17] MEDS: ANASTROZOLE 1 MG TAB PO SCH (12:57)
[2019-09-17] MEDS: MELATONIN 3 MG TAB PO SCH (21:33)
[2019-09-17] MEDS: SENNA 8.6 MG TAB PO SCH (21:34)
[2019-09-18] MEDS: RESTASIS~ORDER AWAITING ACTION SCH ×2 (01:07→07:32)
[2019-09-18] MEDS: OXYCODONE HCL IR 5 MG TAB (IMMEDIATE RELEASE) PO PRN ×2 (05:16→09:18)
[2019-09-18] MEDS: LEVOTHYROXINE SODIUM 100 MCG TABLET PO SCH (05:18)
[2019-09-18] MEDS: ACETAMINOPHEN 500 MG TAB PO SCH (05:18)
[2019-09-18] MEDS: HEPARIN 100 UNIT/ML 5ML FLUSH FLUSH PRN ×2 (05:54→10:40)
[2019-09-18 06:57] LABS: Basophils # (auto) 0.02 K/uL (0-0.2); Basophils % (auto) 0.3 %; Eosinophils # (auto) 0.21 K/uL (0-0.5); Eosinophils % (auto) 2.8 %; Hematocrit (blood only) 25.2 % (37-47); Hemoglobin 8.4 g/dL (12.0-16.0); Immature Granulocytes # (auto) 0.02 K/uL (0.00-0.02); Immature Granulocytes % (auto) 0.3 %; Lymphocytes % (auto) 13.4 %; Mean Corpuscular Hemoglobin 30.3 pg (25-34); Mean Corpuscular Hgb Conc 33.3 g/dL (32-36); Mean Platelet Volume 9.8 fL (7.4-10.4); Monocytes # (auto) 0.91 K/uL (0.11-0.59); Monocytes % (auto) 12.1 %; Neutrophils # (auto) 5.33 K/uL (1.4-6.5); Neutrophils % (auto) 71.1 %; Platelet Count 181 K/uL (130-400); RDW Coefficient of Variation 13.9 % (11.5-14.5); RDW Standard Deviation 46.4 fL (36.4-46.3); Red Blood Count 2.77 M/uL (4.2-5.4); White Blood Count 7.49 K/uL (4.8-10.8)
--- NOTE | 2019-09-18 07:24 | Orthopedic Progress Note ---
Date of Service September 18, 2019 Assessment & Plan (1) Status post total knee replacement, right: 78 yo female stable POD #4 s/p right TKA 1. Med management 2. DVT prophylaxis- Eliquis, SCDs 3. PT/OT 4. D/C planning- home w/ OPPT Admission and Anticipated Discharge Date Admission Date: September 14, 2019 Subjective Pt's d/c cancelled yesterday due to hypotension, dizzy/weak feeling. Pt states she feels much better this AM Physical Exam Physical Exam: Silverlon in place, toes mobile, NVI, mild calf tenderness, neg Dilshad's Results & Data ([facility]) Vital Signs (Past 12 Hours) Vital Signs Temp Pulse Resp BP Pulse Ox 09/18/19 06:14 37.3 C 75 18 126/73 94 09/17/19 23:29 37.6 C H 89 18 110/65 92 Laboratory Results 09/18/19 Range/Units 06:41 WBC 7.49 (4.8-10.8) K/uL RBC 2.77 L (4.2-5.4) M/uL Hgb 8.4 L (12.0-16.0) g/dL Hct 25.2 L (37-47) % MCV 91.0 (80-100) fL MCH 30.3 (25-34) pg MCHC 33.3 (32-36) g/dL RDW Std Deviation 46.4 H (36.4-46.3) fL RDW Coeff of Brijesh 13.9 (11.5-14.5) % Plt Count 181 (130-400) K/uL MPV 9.8 (7.4-10.4) fL Immature Gran % (Auto) 0.3 % Neut % (Auto) 71.1 % Lymph % (Auto) 13.4 % [place] % (Auto) 12.1 % Eos % (Auto) 2.8 % Baso % (Auto) 0.3 % Neut # (Auto) 5.33 (1.4-6.5) K/uL Lymph # (Auto) 1.00 L (1.2-3.4) K/uL [place] # (Auto) 0.91 H (0.11-0.59) K/uL Eos # (Auto) 0.21 (0-0.5) K/uL Baso # (Auto) 0.02 (0-0.2) K/uL Immature Gran # (Auto) 0.02 (0.00-0.02) K/uL
[2019-09-18] MEDS: DOCUSATE SODIUM 100 MG CAP PO SCH (07:32)
[2019-09-18] MEDS: MULTIVITAMIN TAB PO SCH (07:32)
[2019-09-18] MEDS: FERROUS SULFATE 325 MG TAB PO SCH (07:32)
[2019-09-18] MEDS: MAGNESIUM OXIDE 400 MG TAB PO SCH (07:33)
[2019-09-18] MEDS: APIXABAN 5 MG TABLET PO SCH (07:33)
[2019-09-18] MEDS: CALCIUM 600MG + VIT D 400 IU TAB PO SCH (07:33)
[2019-09-18] MEDS: CHOLECALCIFEROL 1,000 UNITS 25 MCG TAB PO SCH (07:33)
[2019-09-18] MEDS: dilTIAZem HCL 240 MG CAPCR PO SCH (11:06)
--- NOTE | 2019-09-30 18:45 | Discharge Summary (DS) ---
HISTORY OF PRESENT ILLNESS: This is a 78-year-old female patient of Dr. Vigil's complaining of chronic right knee pain, longstanding, now progressively getting worse. The patient failed conservative treatment and elected to proceed with a right total knee arthroplasty. PAST MEDICAL HISTORY: Hypertension, hypercholesterolemia, atrial fibrillation, hypothyroidism, osteoarthritis, sciatica and breast cancer. POSTOPERATIVE COURSE: The patient underwent a right total knee arthroplasty on 09/14/2019. She was followed closely with medical consultation, DVT prophylaxis in the form of Eliquis, physical therapy and pain control. The patient did have some episodes of dizziness and unsteadiness on postoperative day #1 and #3. Her vital signs remained stable. Her H and H also remained stable. On postoperative day #4, she felt as though the dizziness episodes had resolved. Medical consultation did sign off with no need for further testing. Otherwise, an uneventful postoperative course. PHYSICAL EXAMINATION: On discharge, right knee Silverlon dressing was clean, dry and intact. There was no redness or drainage, no calf tenderness. Negative Homans sign. Toes and ankle were mobile. Neurologically and neurovascularly, she is intact in her right lower extremity. DIAGNOSES: Status post right total knee arthroplasty with postoperative dizziness with mild hypotension - resolved on discharge, hypertension, hypercholesterolemia, atrial fibrillation, hypothyroidism, osteoarthritis, sciatica and breast cancer. PLAN: The patient was discharged home with outpatient physical therapy. She will continue her preadmission medications including her Eliquis for DVT prophylaxis with the addition of pain medications. The patient will follow up with her family physician in the next week or 2. Concerning her postoperative hypotension, that was just likely due to acute blood loss anemia, in which she was stable on discharge. The patient will follow up with Dr. Vigil as scheduled as an outpatient.
== END 2019-09-18 11:06 | disposition home health service (06) | DRG 470 ==
LOC: ASU 04:55 → 3E 08:53